=== PATIENT | male | born 1965 | race Caucasian/White ===

== ENCOUNTER → 2016-06-08 | Outpatient (CLI) | payer OTHER ==
[~2016-06-08] VITALS: Ht 182.9 cm; Wt 102.1 kg
[~2016-06-08] MED LIST: FLON1SPR; LIDOCAINE 2% INJ 100 MG/5 ML SDV (FOR ANES.) As Ordered ONE; NS 1,000 ML IV SCH; PROPOFOL 200 MG/20 ML VIAL As Ordered ONE
--- NOTE | 2016-06-08 10:01 | ROOR ---
Patient Name: Maya Luong Procedure Date: 06/08/2016 9:45 AM Date of : 1965 Age: 50 Room: [facility] Gender: Male Note Status: Finalized Procedure: Colonoscopy to Cecum + Biopsy Polypectomy Indications: Screening for colorectal malignant neoplasm Providers: Dada Root MD Referring MD: CULLEN COVINGTON JR, MD Requesting Provider: Medicines: Monitored Anesthesia Care Complications: No immediate complications. Procedure: Pre-Anesthesia Assessment: - The heart rate, respiratory rate, oxygen saturations, blood pressure, adequacy of pulmonary ventilation, and response to care were monitored throughout the procedure. The Colonoscope was introduced through the anus and advanced to the cecum, identified by appendiceal orifice and ileocecal valve. The colonoscopy was performed without difficulty. The patient tolerated the procedure well. The quality of the bowel preparation was excellent. Findings: The perianal and digital rectal examinations were normal. Non-bleeding internal hemorrhoids were found during retroflexion. The hemorrhoids were small and Grade I (internal hemorrhoids that do not prolapse). A diminutive polyp was found in the rectum. The polyp was sessile. The polyp was removed with a cold biopsy forceps. Resection and retrieval were complete. The exam was otherwise without abnormality on direct and retroflexion views. Impression: - Non-bleeding internal hemorrhoids. - One diminutive polyp in the rectum, removed with a cold biopsy forceps. Resected and retrieved. - The examination was otherwise normal on direct and retroflexion views. - The exam was otherwise normal to the cecum. Recommendation: - Patient has a contact number available for emergencies. The signs and symptoms of potential delayed complications were discussed with the patient. Return to normal activities tomorrow. Written discharge instructions were provided to the patient. - High fiber diet. - Discharge patient to home. - Continue present medications. - Await pathology results. - Telephone GI clinic for pathology results in 1 week. - Repeat colonoscopy in 10 years for surveillance based on pathology results. - Return to referring physician. - The findings and recommendations were discussed with the patient's family. Dada Root MD Dada Root MD 06/08/2016 10:00:39 AM This report has been signed electronically. Number of Addenda: 0 Note Initiated On: 06/08/2016 9:45 AM Estimated Blood Loss: Estimated blood loss: none.
[2016-06-08 10:25] VITALS: BP 156/83
== END | disposition home or self-care (01) ==
LOC: M OPP 08:42
PROVIDERS: ATTEND Internal Medicine Gastroenterology
DX: Z12.11 Encounter for screening for malignant neoplasm of colon (principal); K64.0 First degree hemorrhoids; K62.1 Rectal polyp; E66.9 Obesity, unspecified; E78.00 Pure hypercholesterolemia, unspecified; F41.9 Anxiety disorder, unspecified

== ENCOUNTER 2016-09-05 14:25 | Emergency (ER) | payer OTHER ==
[~2016-09-05] VITALS: Ht 182.9 cm; Wt 104.3 kg
[2016-09-05 14:25] VITALS: BP 167/92
[~2016-09-05 14:25] MED LIST changes: -LIDOCAINE 2% INJ 100 MG/5 ML SDV (FOR ANES.) As Ordered ONE; -NS 1,000 ML IV SCH; -PROPOFOL 200 MG/20 ML VIAL As Ordered ONE
[2016-09-05] MEDS ORDERED: cefTRIAXone SOD 2 GM in D5W MINI-BAG PLUS 50 ML IV ONE (14:45)
[2016-09-05] MEDS ORDERED: ADACEL/BOOSTRIX VACCINE (DIPHTH/PERTUSS/ACELL/TETANUS)0.5ML SYR (90715) IM ONE (14:45)
[2016-09-05] MEDS ORDERED: LIDOCAINE 1% SDV 5 ML VIAL SC ONE (14:45)
[2016-09-05] MEDS ORDERED: MORPHINE 4 MG/ML 1ML SYRINGE IV ONE ×2 (15:00→16:30)
[2016-09-05] MEDS ORDERED: LIDOCAINE 1% MDV 20ML VIAL As Ordered ONE (15:05)
--- NOTE | 2016-09-05 15:27 | REP ---
REASON: Injury to the third digit of the right hand. There has been partial traumatic amputation of the distal phalanx of the third digit. Signed by Eliot Becker DO 09/05/2016 04:18 P
[2016-09-05 15:50] LABS: BASO # 0.1 K/mm3 (0.0-0.2); BASO % 0.9 % (0.0-1.0); EOS # 0.3 K/mm3 (0.0-0.50); LARGE UNSTAINED CELL # 0.1 K/mm3 (0.0-0.4); LARGE UNSTAINED CELL % 1.1 % (0.0-4.0); LYMPH # 1.8 K/mm3 (1.5-4.5); LYMPH % 21.7 % (24.0-44.0); MEAN CORPUSCULAR HEMOGLOBIN 29.5 pg (27.0-33.0); MEAN CORPUSCULAR VOLUME 86.7 fl (80.0-96.0); MONO # 0.4 K/mm3 (0.0-0.8); MONO % 4.9 % (0.0-5.0); NEUTROPHILS # 5.2 K/mm3 (1.8-7.7); NEUTROPHILS % 67.3 % (36.0-66.0); PLATELET COUNT, AUTOMATED 231 k/mm3 (150-450); WHITE BLOOD COUNT 7.7 K/mm3 (4.0-10.0)
[2016-09-05 15:54] LABS: INR 0.99
--- NOTE | 2016-09-05 16:06 | ED PDOC ---
Post-Departure Follow-Up SPOKE WITH DR. Jenkins REGARDING THIS PT. ADVISED THE AFFECTED FINGER NEEDS TO BE "CUT BACK AND SEWN UP." ASKED IF I WAS COMFORTABLE DOING THIS PROCEDURE AND ADVISED I HAVE NOT PERFORMED THIS BEFORE AND WAS NOT COMFORTABLE. ADVISED HE WOULD BE DOWN TO SEE PT, BUT HAS A FEW CASES PRIOR TO COMING TO ED. SPOKE WITH PT AND , MADE AWARE THAT THEY WILL BE WAITING FOR ORTHO TO SEE THEM. PT AND VOICED UNDERSTANDING, PT RESTING COMFORTABLY AT THIS TIME. SHAYLEE ELIZONDO PA-C September 05, 2016 16:06
[2016-09-05 16:10] LABS: ANION GAP 6 MEQ/L (8-16); BLOOD UREA NITROGEN 25 MG/DL (7-18); CALCIUM LEVEL 8.6 MG/DL (8.5-10.1); CARBON DIOXIDE LEVEL 28 MEQ/L (21-32); CHLORIDE LEVEL 107 MEQ/L (98-107); CREATININE FOR GFR 1.11 MG/DL (0.70-1.30); GLOMERULAR FILTRATION RATE > 60.0 (>56); GLUCOSE, FASTING 136 MG/DL (70-105); POTASSIUM SERUM 4.2 MEQ/L (3.5-5.1); SODIUM LEVEL 141 MEQ/L (136-145)
[2016-09-05] MEDS ORDERED: NORCOTAB PO (19:29)
[2016-09-05] MEDS ORDERED: KEFL500C7 PO (19:29)
--- NOTE | 2016-09-06 12:01 | ER ---
DATE OF CONSULTATION: 09/05/2016 REASON FOR EMERGENCY ROOM VISIT: Amputation of the right long finger to the distal phalanx. HISTORY OF PRESENT ILLNESS: He works for the [employer] at [employer], was operating a leaf blower and accidentally had his finger in the leaf blower's chute and the spinning blade injured the tip of his finger and he had near complete amputation, basically complete amputation of the distal aspect of the distal phalanx including the nail plate. He was seen in the emergency room by the emergency room staff and I was called to see him for his injury. X-rays show the amputation. No other injury. Only complaints of pain isolated to that finger. PAST MEDICAL HISTORY: Otherwise essentially unremarkable. PAST SURGICAL HISTORY: Polypectomy in his nose. MEDICATIONS: He is on no medications. PRIMARY MEDICAL DOCTOR: James Bryant MD. ALLERGIES: He has no known drug allergies. SOCIAL HISTORY: He does not smoke, other than occasional cigar. Drinks alcohol occasionally. He lives in [place]. He is , healthy children. He is here with his . REVIEW OF SYSTEMS: Health survey was unremarkable. PHYSICAL EXAMINATION: Alert and oriented pleasant male. His blood pressure was 167/92, pulse 75, temperature 98.2, respirations 18, oxygen saturation 98% on room air. HEENT exam is benign. Examination of his right upper extremity revealed basically a transverse open amputation of the distal phalanx with the distal phalanx bone clearly exposed. There was quite a bit of a jagged laceration of the surrounding skin edges. There was no nail plate visible. Volarly, he had sensation, although he had a digital nerve block that was now just starting to wear off, but he did have sensation of the volar aspect of his fingertip. The FDP, FDS and the extensor function was intact. Radiographs reviewed as described showing the fracture to the distal phalanx, basically an amputation. IMPRESSION: Open amputation with fracture of the distal phalanx open of the right long finger. I talked to him about this. I would recommend we do a thorough irrigation, debridement, and a revision amputation by debriding the bone back so it can be covered by the volar flap of soft tissue. He was agreeable to that as well, so we plan to proceed with that treatment.
--- NOTE | 2016-09-07 09:03 | RO ---
DATE OF PROCEDURE: 09/05/2016 PREPROCEDURE DIAGNOSIS: Traumatic amputation of distal phalanx right middle finger. POSTPROCEDURE DIAGNOSIS: Traumatic amputation of distal phalanx right middle finger. PROCEDURE: 1. Irrigation and debridement of soft tissue skin and bone. 2. Debridement of distal phalanx and bone back to below the soft tissue envelope. 3. Repair of the traumatic amputation with #3-0 nylon sutures. SURGEON: Dr. Libby Hamilton DOUGHNUT GLAZIER: ANESTHESIA: Local, digital block. COMPLICATIONS: None. DESCRIPTION OF PROCEDURE: He was given 2 grams of ceftriaxone in the emergency room. His tetanus was updated today. His right hand, base of his finger was sterilely prepped and then 1% Lidocaine was infiltrated for a digital block. I then prepped his entire hand with Betadine. He was draped with a sterile drape. Using a finger from a sterile glove as a tourniquet to the base of the finger. I then began copiously irrigating with sterile saline solution, the tip of the finger, removing all the hematoma and there was quite a bit of tattooing of the soft tissue with dirt and that was sharply debrided away with a #15-scalpel blade, as well as the skin edges such that I could eliminate all the dirty soft tissue. Then I proceeded to debride back the bone of the distal phalanx that was quite prominent, such that I was below the soft tissue envelope. There are some comminuted pieces of bone in the soft tissues, which were sharply excised with a scalpel blade as well. I irrigated again copiously, and then I tacked back the skin edges as best as possible to cover the end of the remaining distal phalanx with multiple #3-0 nylon sutures. I then sterilely dressed with an Adaptic and moist gauze and a finger dressing and then released the tourniquet, held pressure and that concluded the procedure.
== END 2016-09-05 19:42 | disposition home or self-care (01) ==
LOC: M ED 16:08
DX: S68.122A Partial traumatic metacarpophalangeal amputation of right middle finger, initial encounter (principal); W29.3XXA Contact with powered garden and outdoor hand tools and machinery, initial encounter; Y92.89 Other specified places as the place of occurrence of the external cause; Y93.H9 Activity, other involving exterior property and land maintenance, building and construction; Y99.0 Civilian activity done for income or pay; Z72.0 Tobacco use
CPT/HCPCS: 11012; 12001; 73140; 80048; 85025; 85610; 85730; 90471; 90715; 96374; 96375; 99284; J0696

== ENCOUNTER → 2019-10-12 | Outpatient (REF) | payer OTHER ==
[~2019-10-12] MED LIST changes: +HYDR-3715 PO; +KEFL500C17 PO
[2019-10-12 18:49] LABS: APPEARANCE, URINE CLEAR (CLEAR); BACTERIA, URINE AUTO NEGATIVE (NEGATIVE); BILIRUBIN, URINE AUTO NEGATIVE (NEGATIVE); BLOOD, URINE BLOOD NEGATIVE (NEGATIVE); COLOR, URINE YELLOW (YELLOW); GLUCOSE, URINE (UA) AUTO NEGATIVE (NEGATIVE); KETONE, URINE AUTO NEGATIVE (NEGATIVE); LEUKOCYTE ESTERASE, URINE AUTO NEGATIVE (NEGATIVE); NITRITE, URINE AUTO NEGATIVE (NEGATIVE); PROTEIN, URINE AUTO NEGATIVE (NEGATIVE); RBC, URINE AUTO 1 /HPF (0-3); SPECIFIC GRAVITY URINE AUTO 1.019 (1.002-1.035); SQUAMOUS EPITHELIAL CELL UR AU 0 /HPF (0-6); UROBILINOGEN, URINE AUTO 0.2 mg/dL (0.0-2.0); WBC, URINE AUTO 1 /HPF (0-3)
== END ==
LOC: M SMT 16:57
PROVIDERS: ATTEND Nurse Practitioner Family
DX: N40.1 Benign prostatic hyperplasia with lower urinary tract symptoms (principal)

== ENCOUNTER → 2021-06-27 | Outpatient (CLI) | payer OTHER | LOC: M WUC 13:06 | DX: N40.1 Benign prostatic hyperplasia with lower urinary tract symptoms (principal); Z12.5 Encounter for screening for malignant neoplasm of prostate ==

== ENCOUNTER → 2021-10-03 | Outpatient (CLI) | payer OTHER | LOC: M WUC 14:08 | PROVIDERS: ATTEND Nurse Practitioner Family | DX: N40.1 Benign prostatic hyperplasia with lower urinary tract symptoms (principal) ==

== ENCOUNTER → 2022-01-04 | Outpatient (REF) | payer OTHER ==
[~2022-01-04] MED LIST changes: +AMLO1TAB24 PO; +DULO1CAP4 PO; +FLOM0.4C39 PO; +ROSU10TA6 PO
== END ==
LOC: M LABWUC 16:09
PROVIDERS: ATTEND Nurse Practitioner Family
DX: R97.20 Elevated prostate specific antigen [PSA] (principal)

== ENCOUNTER → 2022-01-21 | Outpatient (CLI) | payer OTHER | LOC: M LABSMTC 10:00 | PROVIDERS: ATTEND Anesthesiology | DX: Z01.812 Encounter for preprocedural laboratory examination (principal); Z20.822 Contact with and (suspected) exposure to COVID-19 ==

== ENCOUNTER 2022-01-24 11:20 | Day surgery (SDC) | payer OTHER ==
[~2022-01-24] VITALS: Ht 182.9 cm; Wt 113.6 kg
[~2022-01-24 11:20] MED LIST changes: +NS 1,000 ML IV ONE
[2022-01-24] MEDS ORDERED: LIDOCAINE 2% 100MG/5ML SDV (FOR ANES.) As Ordered ONE (12:52)
[2022-01-24] MEDS ORDERED: propofoL 200 MG/20 ML VIAL As Ordered ONE (12:52)
[2022-01-24 13:36] VITALS: BP 133/89
== END 2022-01-24 13:38 | disposition home or self-care (01) ==
LOC: M OPP 11:20
PROVIDERS: ATTEND Internal Medicine Gastroenterology
DX: K64.1 Second degree hemorrhoids (principal); K62.5 Hemorrhage of anus and rectum; Z79.02 Long term (current) use of antithrombotics/antiplatelets; Z79.899 Other long term (current) drug therapy; E78.00 Pure hypercholesterolemia, unspecified; F41.9 Anxiety disorder, unspecified

== ENCOUNTER → 2022-07-20 | Outpatient (CLI) | payer OTHER ==
[~2022-07-20] MED LIST changes: -NS 1,000 ML IV ONE
== END ==
LOC: M CARPUL 15:06
PROVIDERS: ATTEND Nurse Practitioner Adult Health
DX: I49.1 Atrial premature depolarization (principal)

== ENCOUNTER → 2023-09-12 | Outpatient (CLI) | payer OTHER ==
[~2023-09-12] MED LIST changes: -ROSU10TA6 PO; +ROSU10TA61 PO
== END ==
LOC: M WUC 08:27
PROVIDERS: ATTEND Nurse Practitioner Family
DX: M19.012 Primary osteoarthritis, left shoulder (principal)

== ENCOUNTER → 2024-08-10 | Outpatient (REF) | payer OTHER | LOC: M LAB REF 12:26 | PROVIDERS: ATTEND Nurse Practitioner Adult Health | DX: Z11.59 Encounter for screening for other viral diseases (principal); M25.59 Pain in other specified joint ==